=== PATIENT | male | born 1935 | race Caucasian/White ===

== ENCOUNTER 2016-11-28 16:21 | Emergency (ER) | payer MEDICARE, BC ==
[~2016-11-28] VITALS: Ht 180.3 cm; Wt 93.1 kg
[~2016-11-28 16:21] MED LIST: ASPI325T PO; COLC1TAB7 PO; LIPI80TA16 PO; PLAV75TA OR; [UNRECOGNIZED DRUG - OTHER] PO
[2016-11-28 16:36] VITALS: BP 134/83; PULSE 68; RESP 20; TEMP 97.7; O2SAT 99
[2016-11-28] MEDS ORDERED: PLAV75TA29 PO (16:52)
[2016-11-28] MEDS ORDERED: XARE20TA PO (16:52)
[2016-11-28] MEDS ORDERED: PANT40TA3 PO (16:52)
[2016-11-28] MEDS ORDERED: ATOR40TA16 PO (16:52)
[2016-11-28] MEDS ORDERED: AMIO200T PO (16:52)
--- NOTE | 2016-11-28 17:45 | PD ---
HPI Chief Complaint: Complaint Time Seen by Provider: 17:02 Travel History International Travel<30 days: No Contact w/Intl Traveler<30days: No Traveled to known affect area: No History of Present Illness HPI This patient complains of blood in his urine. Duration 1 hour. No symptoms. He feels well. He takes both Plavix and Xarelto. He has history of A. fib and cardiac stents. PFSH Past Medical History Hx Anticoagulant Therapy: Yes Arthritis: Yes Atrial Fibrillation: Yes Heart Rhythm Problems: Yes (OCC PALPITATIONS, SEES DR. HOPPER) Cancer: Yes (THROAT 05) Cardiac Catheterization: Yes Cardiovascular Problems: Yes (CABG) High Cholesterol: Yes Chemotherapy: No Congestive Heart Failure: No Cerebrovascular Accident: Yes Coronary Artery Disease: Yes Diabetes: Yes (BORDERLINE, DIET CONTROLLED) Patient Takes Glucophage: No Endocrine: Yes GERD: Yes Gout: Yes Genitourinary: Yes (BLOOD IN URINE 2010) Headaches: Yes (R/T TMJ ) Hypertension: Yes Implanted Vascular Access Dvce: Yes Musculoskeletal: Yes Neurologic: Yes Respiratory: No Radiation Therapy: Yes Shingles: Yes Past Surgical History Body Medical Devices: STERNAL WIRES, STENTS Cardiac Surgery: Yes (CABG X 3 PASS AND STENTS X 6) Coronary Artery Bypass Graft: Yes (2004: TRIPLE) Coronary Stent: Yes (6 TOTAL) Eye Surgery: Yes (CATARACT) Genitourinary Surgery: Yes (ENDOPYLETOMY) Oral Surgery: Yes (SURGERY ON BASE OF TONGUE R/T CANCER) Tonsillectomy: Yes Other Surgery: Yes (KIDNEY SURGERY AND NEOPLASM REMOVED FROM TONGUE) Social History Alcohol Use: Yes (OCCAS. WINE, BEER) Tobacco Use: No (QUIT: 1975- SMOKED 3 PPD FOR 20+ YRS) Substance Use: No Allergies-Medications (Allergen,Severity, Reaction): Coded Allergies: Iodine (Verified Allergy, Severe, 11/28/16) Reported Meds & Prescriptions Reported Meds & Active Scripts Active Reported Plavix (Clopidogrel Bisulfate) 75 Mg Tab 75 Mg PO DAILY Atorvastatin (Atorvastatin Calcium) 40 Mg Tab 40 Mg PO HS Pantoprazole (Pantoprazole Sodium) 40 Mg Tab 40 Mg PO DAILY PRN Amiodarone (Amiodarone HCl) 200 Mg Tab 200 Mg PO DAILY Xarelto (Rivaroxaban) 20 Mg Tab 20 Mg PO DAILY Review of Systems General / Constitutional: No: Fever HENT: No: Headaches Cardiovascular: No: Chest Pain or Discomfort Respiratory: No: Cough Physical Exam Narrative GASTROINTESTINAL: Abdomen soft, non-tender, nondistended. Positive bowel sounds. No hepato-splenomegaly, or palpable masses. No guarding. SKIN: Focused skin assessment reveals no rash or ulcers. Skin is warm and dry. Palpation shows no induration or nodules. , normal exam, no active bleeding Data Data Last Documented VS Vital Signs Date Time Temp Pulse Resp B/P Pulse Ox O2 Delivery O2 Flow Rate FiO2 11/28/16 16:36 97.7 68 20 134/83 99 MDM Medical Decision Making Medical Screen Exam Complete: Yes Emergency Medical Condition: Yes Medical Record Reviewed: Yes Differential Diagnosis Medication side effect, hematuria, bladder polyp Narrative Course I have reviewed the patient's electronic medical record. Patient looks clinically well. He is asymptomatic with normal vital signs. He is had blood in his urine for one hour I don't think a lot of studies are indicated I looked at his urine visually and is not grossly bloody We had a lengthy discussion about risks and benefits of stopping his blood thinners We decided to continue Xarelto and he's got a hold his morning Plavix until he discusses with his prescribing technical sales support specialist we will call tomorrow morning If he worsens clinically he'll return Recommending also urology follow-up Diagnosis Primary Impression: Hematuria Additional Impression: Medication side effect Qualified Code: T88.7XXA - Medication side effect, initial encounter Additional Instructions: The patient was advised to follow up with their physician and return if they worsen. Med/Other Pt SpecificInfo: Other Disposition: 01 DISCHARGE HOME Condition: Stable Tramaine Pop MD November 28, 2016 17:45
== END 2016-11-28 17:51 | disposition home or self-care (01) ==
LOC: PHED 16:21
DX: R31.9 Hematuria, unspecified (principal); T45.525A Adverse effect of antithrombotic drugs, initial encounter; T45.515A Adverse effect of anticoagulants, initial encounter; I48.91 Unspecified atrial fibrillation; I25.10 Atherosclerotic heart disease of native coronary artery without angina pectoris; R73.03 Prediabetes; K21.9 Gastro-esophageal reflux disease without esophagitis; I10 Essential (primary) hypertension; Z86.73 Personal history of transient ischemic attack (TIA), and cerebral infarction without residual deficits
CPT/HCPCS: 99283

== ENCOUNTER 2017-01-14 11:57 | Observation (INO) | payer MEDICARE, BC ==
[~2017-01-14] VITALS: Ht 180.3 cm; Wt 93.1 kg
[~2017-01-14 11:57] MED LIST changes: +AMIO200T PO; -ASPI325T PO; +ATOR40TA16 PO; -COLC1TAB7 PO; -LIPI80TA16 PO; +PANT40TA3 PO; -PLAV75TA OR; +PLAV75TA29 PO; +XARE20TA PO; -[UNRECOGNIZED DRUG - OTHER] PO
[2017-01-14 12:08] VITALS: BP 106/63; PULSE 76; RESP 15; TEMP 98.1; O2SAT 98
[2017-01-14 12:28] VITALS: BP 101/54; PULSE 68; RESP 18; O2SAT 99
[2017-01-14 12:48] LABS: AUTOMATED NEUTROPHIL # 3.6 TH/MM3 (1.8-7.7); BASOPHIL # 0.1 TH/MM3 (0-0.2); BASOPHIL % 1.6 % (0.0-2.0); EOSINOPHIL # 0.1 TH/MM3 (0-0.4); HEMATOCRIT 25.4 % (39.0-51.0); HEMO FLAGS DIFF FINAL; LYMPH % 19.3 % (9.0-44.0); MEAN CELL VOLUME 94.1 FL (80.0-100.0); MEAN CORPUSCULAR HEMOGLOBIN 32.8 PG (27.0-34.0); MEAN CORPUSCULAR HGB CONC 34.9 % (32.0-36.0); MONO % 4.6 % (0.0-8.0); NEUT % 72.5 % (16.0-70.0); PLATELET COUNT 232 TH/MM3 (150-450); RED CELL DISTRIBUTION WIDTH 13.4 % (11.6-17.2)
[2017-01-14 12:59] LABS: BLOOD, URINE TRACE (NEG); GLUCOSE,URINE NEG (NEG); KETONE, URINE NEG (NEG); NITRITE,URINE NEG (NEG); PH, URINE 5.5 (5.0-8.5)
[2017-01-14 13:03] LABS: POTASSIUM 3.9 MEQ/L (3.5-5.1)
[2017-01-14 13:05] LABS: BACTERIA, URINE FEW /hpf; COMMENT (UR) CULTURE INDICATED; COMMENT2 (UR) MUCOUS PRESENT; CULTURE IF INDICATED CULTURE INDICATED; METHOD OF COLLECTION CLEAN CATCH; SQUAMOUS EPITHELIAL CELL URINE 0-5 /hpf (0-5); URINE COLOR YELLOW (YELLW/STRAW)
[2017-01-14 13:06] LABS: BICARBONATE 23.2 MEQ/L (21.0-32.0)
--- NOTE | 2017-01-14 14:47 | PD ---
HPI Chief Complaint: General Weakness Time Seen by Provider: 12:27 Travel History International Travel<30 days: No Contact w/Intl Traveler<30days: No Traveled to known affect area: No History of Present Illness HPI This patient complains of generalized weakness. He's had dark stool for 3-4 days. Strict GI bleed. He does take a blood thinner for A. fib as well as Plavix. Severity is moderate. No syncope. No alleviating factors. He reports colonoscopy 3 [place]. PFSH Past Medical History Hx Anticoagulant Therapy: Yes Arthritis: Yes Atrial Fibrillation: Yes Heart Rhythm Problems: Yes (OCC PALPITATIONS, SEES DR. HOPPER) Cancer: Yes (THROAT 05') Cardiac Catheterization: Yes Cardiovascular Problems: Yes (CABG) High Cholesterol: Yes Chemotherapy: No Congestive Heart Failure: No Cerebrovascular Accident: Yes Coronary Artery Disease: Yes Diabetes: Yes (BORDERLINE, DIET CONTROLLED) Patient Takes Glucophage: No Endocrine: Yes GERD: Yes Gout: Yes Genitourinary: Yes Headaches: Yes (R/T TMJ ) Hypertension: Yes Implanted Vascular Access Dvce: Yes Musculoskeletal: Yes Neurologic: Yes Respiratory: No Radiation Therapy: Yes Shingles: Yes Influenza Vaccination: No ?: Not Past Surgical History Body Medical Devices: STERNAL WIRES, STENTS Cardiac Surgery: Yes (CABG X 3 PASS AND STENTS X 6) Coronary Artery Bypass Graft: Yes (2004: TRIPLE) Coronary Stent: Yes (6 TOTAL) Eye Surgery: Yes (CATARACT) Genitourinary Surgery: Yes (ENDOPYLETOMY) Oral Surgery: Yes (SURGERY ON BASE OF TONGUE R/T CANCER) Tonsillectomy: Yes Other Surgery: Yes (KIDNEY SURGERY AND NEOPLASM REMOVED FROM TONGUE) Social History Alcohol Use: Yes (OCCAS. WINE, BEER) Tobacco Use: No (QUIT: 1975- SMOKED 3 PPD FOR 20+ YRS) Substance Use: No Allergies-Medications (Allergen,Severity, Reaction): Coded Allergies: Iodine (Verified Allergy, Severe, 01/14/17) Reported Meds & Prescriptions Reported Meds & Active Scripts Active Reported Plavix (Clopidogrel Bisulfate) 75 Mg Tab 75 Mg PO DAILY Atorvastatin (Atorvastatin Calcium) 40 Mg Tab 40 Mg PO HS Pantoprazole (Pantoprazole Sodium) 40 Mg Tab 40 Mg PO DAILY PRN Amiodarone (Amiodarone HCl) 200 Mg Tab 200 Mg PO DAILY Xarelto (Rivaroxaban) 20 Mg Tab 20 Mg PO DAILY Review of Systems General / Constitutional: No: Fever Eyes: No: Visual changes HENT: No: Headaches Cardiovascular: Positive: Irregular Rhythm, No: Chest Pain or Discomfort Respiratory: No: Shortness of Breath Gastrointestinal: No: Abdominal Pain Genitourinary: No: Dysuria Musculoskeletal: Positive: Weakness, No: Pain Skin: No Rash Neurologic: Positive: Weakness Psychiatric: No: Depression Endocrine: No: Polydipsia Hematologic/Lymphatic: No: Easy Bruising Physical Exam Narrative GENERAL: Well-nourished, well-developed patient in no apparent distress. SKIN: Focused skin assessment reveals no rash and nodules. Skin is Warm and dry. HEAD: Atraumatic. Normocephalic. EYES: Pupils equal and round. No scleral icterus. No injection or drainage. ENT: No nasal bleeding or discharge. Mucous membranes pink and moist. NECK: Trachea midline. No JVD. CARDIOVASCULAR: Regular rate and rhythm. No murmur appreciated. RESPIRATORY: No accessory muscle use. Clear to auscultation. Breath sounds equal bilaterally. GASTROINTESTINAL: Abdomen soft, non-tender, nondistended. Hepatic and splenic margins not palpable. MUSCULOSKELETAL: No obvious deformities. No clubbing. No cyanosis. No edema. NEUROLOGICAL: Awake and alert. No obvious cranial nerve deficits. Motor grossly within normal limits. Normal speech. PSYCHIATRIC: Appropriate mood and affect; insight and judgment normal. Rectal: Black stool, normal tone, no mass Data Data Last Documented VS Vital Signs Date Time Temp Pulse Resp B/P Pulse Ox O2 Delivery O2 Flow Rate FiO2 01/14/17 12:28 68 18 101/54 99 Room Air 01/14/17 12:08 98.1 Orders Iv Access Insert/Monitor (01/14/17 12:32) Complete Blood Count With Diff (01/14/17 12:32) Basic Metabolic Panel (Bmp) (01/14/17 12:32) Urinalysis - C+S If Indicated (01/14/17 12:32) Urine Culture (01/14/17 12:38) Admit Order (Ed Use Only) (01/14/17 14:35) Labs Laboratory Tests Test 01/14/17 12:38 White Blood Count 5.0 TH/MM3 Red Blood Count 2.70 MIL/MM3 Hemoglobin 8.9 GM/DL Hematocrit 25.4 % Mean Corpuscular Volume 94.1 FL Mean Corpuscular Hemoglobin 32.8 PG Mean Corpuscular Hemoglobin 34.9 % Concent Red Cell Distribution Width 13.4 % Platelet Count 232 TH/MM3 Mean Platelet Volume 8.0 FL Neutrophils (%) (Auto) 72.5 % Lymphocytes (%) (Auto) 19.3 % Monocytes (%) (Auto) 4.6 % Eosinophils (%) (Auto) 2.0 % Basophils (%) (Auto) 1.6 % Neutrophils # (Auto) 3.6 TH/MM3 Lymphocytes # (Auto) 1.0 TH/MM3 Monocytes # (Auto) 0.2 TH/MM3 Eosinophils # (Auto) 0.1 TH/MM3 Basophils # (Auto) 0.1 TH/MM3 CBC Comment DIFF FINAL Differential Comment Urine Collection Type CLEAN CATCH Urine Color YELLOW Urine Turbidity SLIGHT Urine pH 5.5 Urine Specific [place] 1.020 Urine Protein NEG mg/dL Urine Glucose (UA) NEG mg/dL Urine Ketones NEG mg/dL Urine Occult Blood TRACE Urine Nitrite NEG Urine Bilirubin NEG Urine Leukocyte Esterase LARGE Urine RBC 4-9 /hpf Urine WBC 25-49 /hpf Urine WBC Clumps MOD Urine Squamous Epithelial 0-5 /hpf Cells Urine Amorphous Sediment FEW Urine Bacteria FEW /hpf Microscopic Urinalysis Comment CULTURE INDICATED Urine Collection Time 1238 Sodium Level 142 MEQ/L Potassium Level 3.9 MEQ/L Chloride Level 111 MEQ/L Carbon Dioxide Level 23.2 MEQ/L Anion Gap 8 MEQ/L Blood Urea Nitrogen 23 MG/DL Creatinine 1.00 MG/DL Estimat Glomerular Filtration 72 ML/MIN Rate Random Glucose 109 MG/DL Calcium Level 8.8 MG/DL [facility] Medical Decision Making Medical Screen Exam Complete: Yes Emergency Medical Condition: Yes Medical Record Reviewed: Yes Differential Diagnosis GI bleed, symptomatically anemia, medication side effect Narrative Course I have reviewed the patient's electronic medical record. Last hemoglobin on file is from last year and very normal IV placed CBC is revealing significant anemia with hemoglobin of 8.9 Metabolic profile is normal except for mild elevation of BUN Patient has GI bleed with blood thinner and symptomatic anemia He requires admission for this I reviewed with hospitalist [facility] Point of Care Internal Pos. & Neg. Controls: Passed Fecal Specimen Occult Blood: Positive Diagnosis Primary Impression: GI bleed Qualified Code: K92.1 - Gastrointestinal hemorrhage with melena Additional Impressions: Symptomatic anemia Anticoagulated Admitting Information Admitting Physician Requests: Admit Tramaine Pop MD Jan 14, 2017 14:47
[2017-01-14 14:49] VITALS: BP 105/55; PULSE 66; RESP 18; O2SAT 97
[2017-01-14] MEDS: SODIUM CHLOR 0.9% 1000 ML INJ 1,000 ML IV SCH (15:17)
[2017-01-14] MEDS ORDERED: PANTOPRAZOLE SODIUM 40 MG VIAL IV PUSH ONE (15:30)
[2017-01-14] MEDS ORDERED: ACETAMINOPHEN 325 MG TAB PO PRN (15:30)
[2017-01-14] MEDS ORDERED: NALOXONE HCL 0.4 MG/ML AMP IV PRN (15:30)
[2017-01-14] MEDS ORDERED: SODIUM CHLORIDE 0.9% FLUSH 10 ML FLUSH IV FLUSH PRN (15:30)
[2017-01-14] MEDS ORDERED: ONDANSETRON HCL 4 MG/2 ML VIAL IVP PRN (15:30)
[2017-01-14 15:33] VITALS: BP 142/82; PULSE 61; RESP 20; TEMP 96.8; O2SAT 100
[2017-01-14] MEDS: PANTOPRAZOLE SODIUM 40 MG VIAL IV PUSH SCH (16:29)
[2017-01-14] MEDS: SODIUM CHLORIDE 0.9% FLUSH 10 ML FLUSH IV FLUSH SCH (20:44)
[2017-01-14] MEDS: ATORVASTATIN 40 MG TAB PO SCH (20:44)
[2017-01-14 20:52] VITALS: BP 125/79; PULSE 63; RESP 18; TEMP 96.9; O2SAT 99
[2017-01-15 01:16] VITALS: BP 114/62; PULSE 59; RESP 16; TEMP 97; O2SAT 98
[2017-01-15] MEDS: SODIUM CHLOR 0.9% 1000 ML INJ 1,000 ML IV SCH ×3 (01:17→21:38)
[2017-01-15 07:36] LABS: AUTOMATED NEUTROPHIL # 2.4 TH/MM3 (1.8-7.7); BASOPHIL % 1.3 % (0.0-2.0); EOSINOPHIL # 0.2 TH/MM3 (0-0.4); EOSINOPHIL % 4.8 % (0.0-4.0); HEMATOCRIT 23.4 % (39.0-51.0); HEMO FLAGS DIFF FINAL; LYMPH % 23.8 % (9.0-44.0); LYMPHOCYTE # 0.9 TH/MM3 (1.0-4.8); MEAN CELL VOLUME 95.3 FL (80.0-100.0); MEAN CORPUSCULAR HEMOGLOBIN 32.1 PG (27.0-34.0); MEAN CORPUSCULAR HGB CONC 33.7 % (32.0-36.0); MONO % 5.8 % (0.0-8.0); NEUT % 64.3 % (16.0-70.0); PLATELET COUNT 198 TH/MM3 (150-450); RED BLOOD COUNT 2.45 MIL/MM3 (4.50-5.90); RED CELL DISTRIBUTION WIDTH 13.6 % (11.6-17.2); WHITE BLOOD COUNT 3.7 TH/MM3 (4.0-11.0)
[2017-01-15 07:50] VITALS: BP 117/70; PULSE 57; RESP 20; TEMP 96.2; O2SAT 98
[2017-01-15 07:53] LABS: POTASSIUM 4.1 MEQ/L (3.5-5.1)
[2017-01-15] MEDS: SODIUM CHLORIDE 0.9% FLUSH 10 ML FLUSH IV FLUSH SCH ×2 (09:00→21:00)
[2017-01-15] MEDS: AMIODARONE 200 MG TAB PO SCH (09:32)
--- NOTE | 2017-01-15 10:54 | PD.CONS ---
HPI History of Present Illness This is a 81 year old gentleman with hx AF on xarelto and plavix, tongue ca s/p excision, GERD who presented to the ER for fatigue. He was found to be hemoccult positive, Hgb 8.9 on admission yesterday and today 7.9. 3-4 days ago he began to feel very week. He started xarelto 1m ago. 2 weeks ago he began noticing black stools. No liberty blood. He did have hematuria at that time as well and subsequent urological work up was negative for source of bleeding. No prior hx GIB, heavy drinking. His last EGD/colonoscopy was 3 y ago and he recalls finding of diverticulosis and no other abnormal findings. (Gabby Nuñez) PFSH Past Medical History AF tongue ca s/p excision GERD CVD Past Surgical History CABG stents surgical excision tongue ca endopylotomy achilles tendon repair meniscus repair tonsillectomy (Gabby Nuñez) Coded Allergies: Iodine (Verified Allergy, Severe, 01/14/17) Family History lung ca - mother cerebral hemorrhage - father Social History social ETOH quit [employer] 50y ago no illicit drug use (Gabby Nuñez) Review of Systems Constitutional: DENIES: Fever Eyes: DENIES: Blurred vision Ears, nose, mouth, throat: DENIES: Hearing loss Respiratory: DENIES: Wheezing Cardiovascular: DENIES: Chest pain Gastrointestinal: COMPLAINS OF: Black stools, DENIES: Abdominal pain, Bloody stools, Constipation, Diarrhea, Nausea, Vomiting, Hematemesis Genitourinary: DENIES: Urinary incontinence Musculoskeletal: DENIES: Joint Swelling Integumentary: DENIES: Rash Neurologic: DENIES: Abnormal gait Psychiatric: DENIES: Confusion (Gabby Nuñez) GI Exam Vitals I&O Vital Signs Date Time Temp Pulse Resp B/P Pulse Ox O2 Delivery O2 Flow Rate FiO2 01/15/17 07:50 96.2 57 20 117/70 98 01/15/17 04:37 01/15/17 01:16 97.0 59 16 114/62 98 01/14/17 20:52 96.9 63 18 125/79 99 01/14/17 15:33 96.8 61 20 142/82 100 01/14/17 14:49 66 18 105/55 97 Room Air 01/14/17 12:28 68 18 101/54 99 Room Air 01/14/17 12:08 98.1 76 15 106/63 98 I/O 01/14/17 01/14/17 01/14/17 01/15/17 01/15/17 01/15/17 06:59 14:59 22:59 06:59 14:59 22:59 Intake Total 491 ml Balance 491 ml Intake IV Total 491 ml # Voids 2 Laboratory Test 01/14/17 01/15/17 12:38 07:15 White Blood Count 5.0 TH/MM3 3.7 TH/MM3 Red Blood Count 2.70 MIL/MM3 2.45 MIL/MM3 Hemoglobin 8.9 GM/DL 7.9 GM/DL Hematocrit 25.4 % 23.4 % Mean Corpuscular Volume 94.1 FL 95.3 FL Mean Corpuscular Hemoglobin 32.8 PG 32.1 PG Mean Corpuscular Hemoglobin 34.9 % 33.7 % Concent Red Cell Distribution Width 13.4 % 13.6 % Platelet Count 232 TH/MM3 198 TH/MM3 Mean Platelet Volume 8.0 FL 7.8 FL Neutrophils (%) (Auto) 72.5 % 64.3 % Lymphocytes (%) (Auto) 19.3 % 23.8 % Monocytes (%) (Auto) 4.6 % 5.8 % Eosinophils (%) (Auto) 2.0 % 4.8 % Basophils (%) (Auto) 1.6 % 1.3 % Neutrophils # (Auto) 3.6 TH/MM3 2.4 TH/MM3 Lymphocytes # (Auto) 1.0 TH/MM3 0.9 TH/MM3 Monocytes # (Auto) 0.2 TH/MM3 0.2 TH/MM3 Eosinophils # (Auto) 0.1 TH/MM3 0.2 TH/MM3 Basophils # (Auto) 0.1 TH/MM3 0.0 TH/MM3 CBC Comment DIFF FINAL DIFF FINAL Differential Comment Urine Collection Type CLEAN CATCH Urine Color YELLOW Urine Turbidity SLIGHT Urine pH 5.5 Urine Specific [place] 1.020 Urine Protein NEG mg/dL Urine Glucose (UA) NEG mg/dL Urine Ketones NEG mg/dL Urine Occult Blood TRACE Urine Nitrite NEG Urine Bilirubin NEG Urine Leukocyte Esterase LARGE Urine RBC 4-9 /hpf Urine WBC 25-49 /hpf Urine WBC Clumps MOD Urine Squamous Epithelial 0-5 /hpf Cells Urine Amorphous Sediment FEW Urine Bacteria FEW /hpf Microscopic Urinalysis Comment CULTURE INDICATED Urine Collection Time 1238 Sodium Level 142 MEQ/L 145 MEQ/L Potassium Level 3.9 MEQ/L 4.1 MEQ/L Chloride Level 111 MEQ/L 112 MEQ/L Carbon Dioxide Level 23.2 MEQ/L 24.0 MEQ/L Anion Gap 8 MEQ/L 9 MEQ/L Blood Urea Nitrogen 23 MG/DL 15 MG/DL Creatinine 1.00 MG/DL 0.99 MG/DL Estimat Glomerular Filtration 72 ML/MIN 73 ML/MIN Rate Random Glucose 109 MG/DL 104 MG/DL Calcium Level 8.8 MG/DL 8.2 MG/DL Date/Time Procedure Status Source Growth 01/14/17 12:38 Urine Culture Received Urine Clean Catch Pending Physical Examination HEENT: PERRL; normocephalic; atraumatic; no jaundice. CHEST: CTA CARDIAC: RRR ABDOMEN: Soft, nondistended, nontender; no hepatosplenomegaly; bowel sounds are present in all four quadrants. EXTREMITIES: No clubbing, cyanosis, or edema. SKIN: Normal; no rash; no jaundice. CLASS A LINEMAN: No focal deficits; alert and oriented times three. (Gabby Nuñez) Assessment and Plan Plan ASSESSMENT - anemia - symptomatic. 8.9 on admission, dropped to 7.9 today. - melena - black stools for last 2 weeks, started xarelto 1m ago, also takes plavix. no prior hx GIB, heavy drinking. No xarelto or plavix in 2d, he stopped. PLAN - EGD today vs monday - obain consents - NPO for now - rck HH 1100 - transfuse if needed - supportive care - further recommendations after Dr Evans sees pt This pt seen by myself and Dr Evans and this note is written on her behalf ( Gbaby Nuñez) Physician Comments seen, examined agree with above Repeat hb better. Reports having hematuria recently, had extensive urological work-up including CT abdomen/pelvis, negative He states he has chronic anemia, unclear about his base line hb clear liquid diet egd/colon in am (Mckenzie Evans MD) Gabby Nuñez Jan 15, 2017 10:54 Mckenzie Evans MD Jan 15, 2017 12:08
[2017-01-15 11:40] LABS: HEMATOCRIT 26.2 % (39.0-51.0)
[2017-01-15 12:00] VITALS: BP 125/71; PULSE 56; RESP 20; TEMP 97.4; O2SAT 99
[2017-01-15] MEDS ORDERED: PEG (High)/E-LYTE SOLN 4000 ML BTL PO ONE (12:30)
[2017-01-15 12:39] LABS: INDIRECT BILIRUBIN 0.6 MG/DL (0.0-0.8); TOTAL BILIRUBIN ADULT 0.8 MG/DL (0.2-1.0)
--- NOTE | 2017-01-15 13:16 | MH ---
cc: RILEY CAI MD DATE OF ADMISSION: 01/14/2017 CHIEF COMPLAINT: Generalized weakness. HISTORY OF PRESENT ILLNESS: This is an 81-year-old male with past medical-surgical history significant for arthritis, history of atrial fibrillation, history of throat cancer and tongue cancer, history of coronary artery disease status post three-vessel bypass surgery and six stents in the heart, history of stroke in the past, diabetes, borderline diet-controlled, history of gastroesophageal reflux disease, gout, headaches, right TMJ, history of shingles. A CABG was done in 2004. Right eye cataract surgery. Surgery on the base of the tongue. Kidney surgery and neoplasm removed from the tongue. Tonsillectomy. Polypectomy. He came to the [facility] complaining of generalized weakness. He was also complaining of dark stools. He takes a blood thinner for atrial fibrillation as well as Plavix. He denies any nausea or vomiting. He denies any diarrhea. He denies any chest pain. He denies any shortness of breath. He [place] He recalls a finding of diverticulosis on colonoscopy. Other than that, nothing significant. PAST MEDICAL HISTORY / PAST SURGICAL HISTORY: Past medical-surgical history as dictated above. SOCIAL HISTORY: He occasionally drinks wine or beer and he smokes three packs a day for twenty-plus years and quit in 1974. He denies any drug abuse. He lives at home alone. 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 FAMILY HISTORY: Cerebral hemorrhage in the dad and the mom had lung cancer. ALLERGIES: IODINE. MEDICATIONS: 1. Plavix 75 milligrams p.o. daily. 2. Atorvastatin 40 milligrams p.o. at bedtime. 3. Protonix 40 milligrams p.o. daily. 4. Amlodipine 200 milligrams p.o. daily. 5. Xarelto 20 milligrams p.o. daily. REVIEW OF SYSTEMS: Positive for generalized weakness and dark stool. All other review of systems is negative. PHYSICAL EXAMINATION: GENERAL: On physical exam, this is an 81-year-old male sitting on the bed not in acute distress. VITAL SIGNS: Temperature 97.4, heart rate 56, respirations 20, blood pressure 125/71, 02 saturation 99% on room air. HEAD, EYES, EARS, NOSE, THROAT: Normocephalic and atraumatic. Extraocular muscles intact. Pupils equal, round and reactive to light and accommodation. Oral mucosa moist. NECK: The neck is supple. No visible thyromegaly or neck mass. Trachea is central. CARDIOVASCULAR: Regular rate and rhythm. RESPIRATORY: Clear to auscultation bilaterally. ABDOMEN: Abdomen soft and nontender. Bowel sounds audible. EXTREMITIES: No cyanosis or clubbing. Full range of motion of all extremities. NEUROLOGIC: Awake, alert and oriented times four. No focal deficits. SKIN: Warm and dry. PSYCHIATRIC: The patient is cooperative. Mood and affect are normal. LABORATORY STUDIES: CBC showed white blood cell count was 5.0 and now it is 3.7. Hemoglobin was 8.9 and then 7.9 then 8.7. Hematocrit was 25.5 then 23.4 and now it is 26.2. Neutrophils were high at 72.5 and now 64.3. Basic metabolic profile totally unremarkable except for chloride of 112 high, GFR 73 low, glucose 104 normal, calcium 8.2 low. Urine examination large leukocyte esterase, 4 to 9 RBCs, 25 to 49 WBCs, WBC clumps moderate, culture indicated. Urine culture shows no growth in 24 hours. ASSESSMENT AND PLAN: 1. This is an 81-year-old male who came to the ER diagnosed with dark stool with anemia. The patient is on Xarelto and also takes Plavix and has a history of heavy drinking. Holding Xarelto and Plavix for two days, getting EGD and colonoscopy most likely on Monday, keeping n.p.o., supportive care and GI has seen the patient and wants to do endoscopy. Further recommendation per GI. 2. Anemia, most likely due to GI bleed. Will monitor hemoglobin and hematocrit. 3. History of recent hematuria. Had an extensive urology work up including CT of the abdomen and pelvis which was negative. 4. History of coronary artery disease. Holding Xarelto and Plavix. 5. History of hyperlipidemia. Continue with Lipitor 40 milligrams p.o. daily. 6. Gastroesophageal reflux disease (GERD). Protonix 40 milligrams p.o. daily. 7. History of atrial fibrillation. Continue with amiodarone 200 milligrams p.o. daily. 8. Borderline diabetes. Will monitor blood sugar. 9. History of hypertension. Will monitor blood pressure. 10. DVT prophylaxis with SCDs. 11. GI prophylaxis with Protonix 40 milligrams p.o. daily. 12. Check CBC and comprehensive metabolic panel in the morning. We are going to manage the patient on a daily basis and make recommendations on a daily basis. Riley Cai MD EA/CELIA /12:19 PM /1:06 PM
[2017-01-15 16:00] VITALS: BP 125/78; PULSE 54; RESP 20; TEMP 96.5; O2SAT 100
[2017-01-15] MEDS: PANTOPRAZOLE SODIUM 40 MG VIAL IV PUSH SCH (17:44)
[2017-01-15 19:05] LABS: HEMATOCRIT 25.5 % (39.0-51.0); REVIEW FLAG FINAL
[2017-01-15 20:40] VITALS: BP 149/78; PULSE 53; RESP 16; TEMP 96.5; O2SAT 99
[2017-01-15] MEDS: ATORVASTATIN 40 MG TAB PO SCH (21:38)
[2017-01-16] VITALS (13 sets, daily range): BP systolic 97–131; BP diastolic 55–69; PULSE 53–58; RESP 16–18; TEMP 96.5–98.3; O2SAT 97–100
[2017-01-16 06:41] LABS: AUTOMATED NEUTROPHIL # 2.3 TH/MM3 (1.8-7.7); BASOPHIL % 0.9 % (0.0-2.0); EOSINOPHIL # 0.2 TH/MM3 (0-0.4); EOSINOPHIL % 4.7 % (0.0-4.0); HEMATOCRIT 22.7 % (39.0-51.0); HEMO FLAGS DIFF FINAL; LYMPH % 28.2 % (9.0-44.0); MEAN CELL VOLUME 95.1 FL (80.0-100.0); MEAN CORPUSCULAR HGB CONC 33.7 % (32.0-36.0); MONO % 6.6 % (0.0-8.0); NEUT % 59.6 % (16.0-70.0); PLATELET COUNT 202 TH/MM3 (150-450); RED BLOOD COUNT 2.39 MIL/MM3 (4.50-5.90); RED CELL DISTRIBUTION WIDTH 13.9 % (11.6-17.2); WHITE BLOOD COUNT 3.7 TH/MM3 (4.0-11.0)
[2017-01-16 06:49] LABS: CHLORIDE 113 MEQ/L (98-107); POTASSIUM 4.1 MEQ/L (3.5-5.1); SODIUM (NA) 147 MEQ/L (136-145)
[2017-01-16 06:53] LABS: ANION GAP 9 MEQ/L (5-15); BICARBONATE 25.1 MEQ/L (21.0-32.0); BLOOD UREA NITROGEN 11 MG/DL (7-18)
[2017-01-16 06:56] LABS: ALT (GPT) 16 U/L (12-78); AST (GOT) 16 U/L (15-37); GLOMERULAR FILTRATION RATE 74 ML/MIN (>89)
[2017-01-16 06:58] LABS: TOTAL BILIRUBIN ADULT 0.9 MG/DL (0.2-1.0)
[2017-01-16 06:59] LABS: ALKALINE PHOSPHATASE 55 U/L (45-117)
[2017-01-16] MEDS ORDERED: PROPOFOL 200 MG/20 ML AMP IV ONE (07:09)
--- NOTE | 2017-01-16 08:24 | HHI.PR ---
Subjective History of Present Illness Patient s/p endoscopy see full detail in GI Noted Patient wants to go home ok to discharge home per GI and resume anticoagulation Review of Systems Constitutional Constitutional: Fatigue, Weakness Vitals/Results Intake & Output 01/15/17 01/15/17 01/16/17 15:00 23:00 07:00 Intake Total 1820 ml 1097 ml Balance 1820 ml 1097 ml Intake Oral 1820 ml IV Total 1097 ml # Voids 3 3 # Bowel Movements 3 Vital Signs Vital Signs Date Time Temp Pulse Resp B/P Pulse Ox O2 Delivery O2 Flow Rate FiO2 01/16/17 07:45 54 16 133/53 100 01/16/17 07:32 97.5 55 16 109/58 99 01/16/17 06:40 97.0 54 18 113/69 97 01/16/17 06:09 96.5 54 18 113/69 97 01/16/17 04:58 01/16/17 00:26 97.8 58 16 112/66 97 01/15/17 20:40 96.5 53 16 149/78 99 01/15/17 16:00 96.5 54 20 125/78 100 01/15/17 12:00 97.4 56 20 125/71 99 CBC/BMP: 01/16/17 0515 01/16/17 0515 Lab Results Laboratory Tests Test 01/15/17 01/15/17 01/16/17 11:35 18:57 05:15 Hemoglobin 8.7 GM/DL 8.8 GM/DL 7.6 GM/DL Hematocrit 26.2 % 25.5 % 22.7 % White Blood Count 3.7 TH/MM3 Red Blood Count 2.39 MIL/MM3 Mean Corpuscular Volume 95.1 FL Mean Corpuscular Hemoglobin 32.0 PG Mean Corpuscular Hemoglobin 33.7 % Concent Red Cell Distribution Width 13.9 % Platelet Count 202 TH/MM3 Mean Platelet Volume 8.2 FL Neutrophils (%) (Auto) 59.6 % Lymphocytes (%) (Auto) 28.2 % Monocytes (%) (Auto) 6.6 % Eosinophils (%) (Auto) 4.7 % Basophils (%) (Auto) 0.9 % Neutrophils # (Auto) 2.3 TH/MM3 Lymphocytes # (Auto) 1.0 TH/MM3 Monocytes # (Auto) 0.2 TH/MM3 Eosinophils # (Auto) 0.2 TH/MM3 Basophils # (Auto) 0.0 TH/MM3 CBC Comment DIFF FINAL Differential Comment Sodium Level 147 MEQ/L Potassium Level 4.1 MEQ/L Chloride Level 113 MEQ/L Carbon Dioxide Level 25.1 MEQ/L Anion Gap 9 MEQ/L Blood Urea Nitrogen 11 MG/DL Creatinine 0.98 MG/DL Estimat Glomerular Filtration 74 ML/MIN Rate Random Glucose 92 MG/DL Calcium Level 7.8 MG/DL Total Bilirubin 0.9 MG/DL Aspartate Amino Transf 16 U/L (AST/SGOT) Alanine Aminotransferase 16 U/L (ALT/SGPT) Alkaline Phosphatase 55 U/L Total Protein 5.2 GM/DL Albumin 2.9 GM/DL Physical Exam General General Appearance: Well Developed, Well Nourished, No Acute Distress, Comfortable Eyes Eye Exam: Pupils Equal, Pupils Reactive, Sclera White, Extraocular Movement Intact Throat Throat Exam: Oral Mucosa Pecan Gap & Moist, Oral Pharynx Normal Neck Neck Exam: Neck Supple, Trachea Midline Pulmonary Resp Exam: Clear Bilaterally, Breath Sounds Equal, No Distress Cardiology CV Exam: Regular, Normal Sinus Rhythm Gastrointestinal/Abdomen GI Exam: Soft, Non-Tender, Bowel Sounds Present Musculoskeletal MS Exam: Normal Tone Integumentary Skin Exam: Clear, Warm, Dry, Intact Extremeties Extremities Exam: No Edema Neurologic Neuro Exam: Alert, Awake, Oriented, Speech Clear, Moving All Extremities, No Focal Deficits VTE Prophylaxis VTE Prophylaxis Device: SCDs PUD Prophylasis PUD Prophylaxis: Protonix Assessment/Plan Assessment/Plan ASSESSMENT AND PLAN: 1. This is an 81-year-old male who came to the ER diagnosed with dark stool with anemia. The patient was on Xarelto and also takes Plavix and has a history of heavy drinking. Holding Xarelto and Plavix for two days, S/P EGD and colonoscopy please see full report in GI Notes., Ok to discharge per GI. 2. Anemia, most likely due to GI bleed. Will monitor hemoglobin and hematocrit. 3. History of recent hematuria. Had an extensive urology work up including CT of the abdomen and pelvis which was negative. 4. History of coronary artery disease. Holding Xarelto and Plavix. 5. History of hyperlipidemia. Continue with Lipitor 40 milligrams p.o. daily. 6. Gastroesophageal reflux disease (GERD). Protonix 40 milligrams p.o. daily. 7. History of atrial fibrillation. Continue with amiodarone 200 milligrams p.o. daily. 8. Borderline diabetes. Will monitor blood sugar. 9. History of hypertension. Will monitor blood pressure. 10. DVT prophylaxis with SCDs. 11. GI prophylaxis with Protonix 40 milligrams p.o. daily. ok to discharge home today. f/u with PCP/ GI 1 week. Condition at discharge good Activity as tolerated, Diet cardiac Medicine see discharge medicine list. Discussed Condition with: Patient Riley Woodson MD Jan 16, 2017 08:24
[2017-01-16] MEDS: SODIUM CHLORIDE 0.9% FLUSH 10 ML FLUSH IV FLUSH SCH (09:04)
[2017-01-16] MEDS: AMIODARONE 200 MG TAB PO SCH (09:04)
--- NOTE | 2017-01-16 13:36 | MR ---
cc: CASSIE CAI MD, BEATRICE S. M.D. REFERRING PHYSICIAN Dr. Cassie Cai PROCEDURE 01/16/2017 TYPE OF PROCEDURE Upper endoscopy and colonoscopy. REASON FOR PROCEDURE GI bleed, anemia. CONSENT After the risks, benefits, alternatives, indications and limitations were explained to the patient, he signed informed consent. He was informed about the risk of bleeding, perforation, over-sedation, allergic reaction to the medication, missed lesion or failed procedure. PROCEDURE The patient was placed in the left lateral decubitus and after the patient was fully sedated by Anesthesia, upper endoscope was gently inserted into the oral cavity and under direct visualization the esophagus was intubated. Then the scope was gently inserted into the stomach and advanced to the duodenum up to the second portion. Then the scope was slowly withdrawn and the mucosa was fully examined including color, texture, anatomy and motility. In the fundus retroflexion was performed, then the scope was withdrawn and the procedure terminated. He tolerated the procedure well with no immediate complications. FINDINGS 1. Gastritis in the antrum. A biopsy was performed. 2. Retroflexion revealed hiatal hernia, mild esophagitis in the distal esophagus. A biopsy was performed. 3. Old PEG tube scar seen. PROCEDURE #2 While the patient was still sedated, he was turned and colonoscopy was started. Prior to that rectal examination was performed which was normal. Then the scope was gently inserted in the rectum, advanced to the cecum which was identified by the ileocecal valve and appendical orifice. Then the scope was slowly withdrawn and the mucosa was fully examined including color, texture, anatomy and motility. In the rectum retroflexion was performed, then the scope was withdrawn and the procedure terminated. He tolerated the procedure well with no immediate complications. FINDINGS 1. Diverticulosis sigmoid and descending colon. 2. Internal and external hemorrhoids. 3. Otherwise normal colonoscopy. 4. Withdrawal time 6 minutes. 5. Preparation was good. RECOMMENDATION 1. Advance diet. 2. Capsule endoscopy as an outpatient. 3. Follow up with GI in 2 weeks. 4. Okay to restart anticoagulation from GI point of view. 5. Transfuse 2 units of PRBC today to keep hemoglobin more than 9. If more than 9 post-transfusion he can be discharged home today. 6. Further recommendations will depend on the patient's clinical status and the above results. I like to thank Dr. Cassie Cai for referring him to our office for consultation. MD RICKI Shetty/LYNDSEY /7:40 AM /1:33 PM [place]
--- NOTE | 2017-01-16 15:18 | EKG ---
Date Performed: 01/16/2017 Time Performed: 05:21:43 PTAGE: 81 years EKG: SINUS BRADYCARDIA WITH SINUS ARRHYTHMIA WITH FIRST DEGREE AV BLOCK POSSIBLE RIGHT VENTRICUL AR CONDUCTION DELAY SEPTAL MYOCARDIAL INFARCTION Since previous tracing, no significant change noted ABNORMAL ECG PREVIOUS TRACING : 10/17/2015 02.05 DOCTOR: Vinny Pichardo Interpretating Date/Time 01/16/2017 15:18:11
[2017-01-16] MEDS: PANTOPRAZOLE SODIUM 40 MG VIAL IV PUSH SCH (17:11)
[2017-01-16 19:12] LABS: HEMATOCRIT 27.7 % (39.0-51.0); REVIEW FLAG FINAL
== END 2017-01-16 20:29 | disposition home or self-care (01) ==
LOC: PHED 11:57 → INTOOBSV 14:37 → PHEDA 14:37 → PH3A 15:17
PROVIDERS: ADMIT Family Medicine; ATTEND Family Medicine
DX: K92.1 Melena (principal); D50.0 Iron deficiency anemia secondary to blood loss (chronic); R94.31 Abnormal electrocardiogram [ECG] [EKG]; K57.90 Diverticulosis of intestine, part unspecified, without perforation or abscess without bleeding; K64.4 Residual hemorrhoidal skin tags; K64.8 Other hemorrhoids; I44.0 Atrioventricular block, first degree; I49.8 Other specified cardiac arrhythmias; R00.1 Bradycardia, unspecified; K29.70 Gastritis, unspecified, without bleeding; K44.9 Diaphragmatic hernia without obstruction or gangrene; K21.0 Gastro-esophageal reflux disease with esophagitis; I25.10 Atherosclerotic heart disease of native coronary artery without angina pectoris; I10 Essential (primary) hypertension; I48.91 Unspecified atrial fibrillation; E11.9 Type 2 diabetes mellitus without complications; E78.00 Pure hypercholesterolemia, unspecified; I25.2 Old myocardial infarction; M19.90 Unspecified osteoarthritis, unspecified site; Z79.899 Other long term (current) drug therapy; Z85.810 Personal history of malignant neoplasm of tongue; Z86.73 Personal history of transient ischemic attack (TIA), and cerebral infarction without residual deficits; Z95.5 Presence of coronary angioplasty implant and graft; Z95.1 Presence of aortocoronary bypass graft; Z85.89 Personal history of malignant neoplasm of other organs and systems; Z87.891 Personal history of nicotine dependence
CPT/HCPCS: 00740; 00810; 36430; 43239; 45378; 80048; 80053; 80076; 81001; 85014; 85018; 85025; 86850; 86900; 86901; 86920; 87086; 88305; 88312; 93005; 99285; C9113; G0378; J7030; P9016